=== PATIENT | female | born 1995 | race Caucasian/White ===

== ENCOUNTER 2022-04-18 21:46 | Emergency (ER) | payer OTHER ==
[~2022-04-18] VITALS: Ht 157.5 cm; Wt 114.8 kg
[2022-04-18 22:03] VITALS: BP 128/89
[2022-04-18 22:15] VITALS: BP 128/89
--- NOTE | 2022-04-18 23:40 | NUR ---
Patient ambulated to bed 9.
--- NOTE | 2022-04-18 23:40 | NUR ---
Patient unable to provide urine sample this time.
--- NOTE | 2022-04-18 23:58 | NUR ---
LAB AT BESIDE
--- NOTE | 2022-04-19 00:36 | NUR ---
RAD AT BEDSIDE
[2022-04-19] MEDS ORDERED: MORPHINE SULFATE 4 MG/ML SYR IM ONE (01:35)
[2022-04-19] MEDS ORDERED: LIDOCAINE 5% 1 EA PATCH TP SCH (01:35)
[2022-04-19] MEDS ORDERED: ACETAMINOPHEN EXTRA STRENGTH 500 MG TAB PO ONE (01:35)
--- NOTE | 2022-04-19 02:12 | NUR ---
paula bass. Dr. Madrigal made aware.
== END 2022-04-19 02:12 | disposition left against medical advice (07) ==
LOC: MED 21:46
DX: S76.011A Strain of muscle, fascia and tendon of right hip, initial encounter (principal); Z87.39 Personal history of other diseases of the musculoskeletal system and connective tissue; Z88.8 Allergy status to other drugs, medicaments and biological substances; W11.XXXA Fall on and from ladder, initial encounter; Y93.89 Activity, other specified; Y92.89 Other specified places as the place of occurrence of the external cause; Y99.8 Other external cause status
CPT/HCPCS: 36415; 73502; 84702; 99284; Q0092